=== PATIENT | male | born 1940 | race Caucasian/White ===

== ENCOUNTER 2017-11-07 09:02 | Day surgery (SDC) | payer OTHER ==
[~2017-11-07] VITALS: Ht 170.2 cm; Wt 80.7 kg
[~2017-11-07 09:02] MED LIST: AMBIEN10 MG PO; FLOMAX0.4 MG PO; GLUCOPHAGE500 MG PO; GLUCOTROL10 MG PO; LOTREL 5/101 CAPSULE PO; LOW DOSE ASPIRI81 M1 PO; NAPROSYN500 MG PO; PERCOCET 5/31 TABLET PO; PRAVACHOL20 MG PO; TOPROL XL50 MG PO; TRESIBA FL100 UNIT/1 SC; VIAGRA100 MG PO
== END 2017-11-07 10:14 | disposition home or self-care (01) ==
LOC: PAIN 09:02
PROVIDERS: Anesthesiology Pain Medicine
DX: M51.16 Intervertebral disc disorders with radiculopathy, lumbar region (principal); M47.816 Spondylosis without myelopathy or radiculopathy, lumbar region; M48.061 Spinal stenosis, lumbar region without neurogenic claudication; M43.16 Spondylolisthesis, lumbar region; M53.3 Sacrococcygeal disorders, not elsewhere classified; I10 Essential (primary) hypertension; E11.9 Type 2 diabetes mellitus without complications; I25.10 Atherosclerotic heart disease of native coronary artery without angina pectoris; I65.23 Occlusion and stenosis of bilateral carotid arteries; E78.5 Hyperlipidemia, unspecified; F17.200 Nicotine dependence, unspecified, uncomplicated; Z79.4 Long term (current) use of insulin; Z79.82 Long term (current) use of aspirin
CPT/HCPCS: 82948; J1100; J2250

== ENCOUNTER 2017-12-12 10:13 | Day surgery (SDC) | payer OTHER ==
[~2017-12-12] VITALS: Ht 172.7 cm; Wt 80.7 kg
== END 2017-12-12 11:39 | disposition home or self-care (01) ==
LOC: PAIN 10:13 → SDC 11:00 → PAIN 11:39
PROVIDERS: Anesthesiology Pain Medicine
PROC: 3E0R33Z Introduction of Anti-inflammatory into Spinal Canal, Percutaneous Approach (ICD-10-PCS; principal; 2017-12-12)
PROC: 3E0R3BZ Introduction of Anesthetic Agent into Spinal Canal, Percutaneous Approach (ICD-10-PCS; principal; 2017-12-12)
DX: M51.16 Intervertebral disc disorders with radiculopathy, lumbar region (principal); M47.816 Spondylosis without myelopathy or radiculopathy, lumbar region; M48.061 Spinal stenosis, lumbar region without neurogenic claudication; M53.3 Sacrococcygeal disorders, not elsewhere classified; I10 Essential (primary) hypertension; E78.5 Hyperlipidemia, unspecified; I25.10 Atherosclerotic heart disease of native coronary artery without angina pectoris; E11.9 Type 2 diabetes mellitus without complications; F17.210 Nicotine dependence, cigarettes, uncomplicated
CPT/HCPCS: 82948; J1100; J2250